=== PATIENT | male | born 1980 | race Caucasian/White ===

== ENCOUNTER 2017-01-31 07:54 | Inpatient (IN) | payer SELFPAY ==
[~2017-01-31] VITALS: Ht 177.8 cm; Wt 72.0 kg
[2017-01-31 07:55] VITALS: O2SAT 96
[2017-01-31] MEDS ORDERED: ONDANSETRON HCL 4 MG/2 ML VIAL ONE (07:59)
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
[2017-01-31 08:13] LABS: I-STAT POTASSIUM 3.4 MMOL/L (3.5-4.9); I-STAT SODIUM 141 MMOL/L (138-146)
[2017-01-31 08:14] LABS: AUTOMATED NEUTROPHIL # 7.6 TH/MM3 (1.8-7.7); BASOPHIL # 0.1 TH/MM3 (0-0.2); BASOPHIL % 0.6 % (0.0-2.0); EOSINOPHIL # 0.1 TH/MM3 (0-0.4); EOSINOPHIL % 0.6 % (0.0-4.0); HEMO FLAGS DIFF FINAL; LYMPH % 26.4 % (9.0-44.0); MEAN CORPUSCULAR HEMOGLOBIN 31.3 PG (27.0-34.0); MEAN CORPUSCULAR HGB CONC 33.7 % (32.0-36.0); MONO % 5.4 % (0.0-8.0); PLATELET COUNT 298 TH/MM3 (150-450); RED BLOOD COUNT 4.41 MIL/MM3 (4.50-5.90); RED CELL DISTRIBUTION WIDTH 13.1 % (11.6-17.2); WHITE BLOOD COUNT 11.4 TH/MM3 (4.0-11.0)
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
[2017-01-31] MEDS ORDERED: ONDANSETRON HCL 4 MG/2 ML VIAL IV ONE (08:30)
[2017-01-31 08:32] LABS: APTT (PATIENT) 24.7 SEC (24.3-30.1); PROTHROMBIN TIME - PATIENT 11.3 SEC (9.8-11.6)
[2017-01-31] MEDS ORDERED: ACETAMINOPHEN 1000 MG/100 ML VIAL IV PRN (08:45)
[2017-01-31] MEDS ORDERED: MISCELLANEOUS NURSING INFORMATION XX SCH (08:45)
[2017-01-31] MEDS ORDERED: CHLORHEXIDINE GLUCONATE 2 % 1 PACK (2 CLOTHS) TOP PRN (08:45)
[2017-01-31] MEDS ORDERED: ONDANSETRON HCL 4 MG/2 ML VIAL IV PRN (08:45)
[2017-01-31] MEDS: DOCUSATE SODIUM 100 MG/10 ML UDC PO SCH ×2 (09:00→19:40)
[2017-01-31] MEDS: LACTATED RINGER'S 1000 ML INJ 1,000 ML IV SCH ×2 (09:40→16:31)
[2017-01-31] MEDS: ACETAMINOPHEN/HYDROcodone 325 MG/5 MG TAB PO PRN ×4 (09:41→23:17)
[2017-01-31] MEDS ORDERED: MECLIZINE HCL 25 MG TAB PO ONE (09:45)
[2017-01-31 10:57] VITALS: BP 99/59; PULSE 78; RESP 16; TEMP 96.8; O2SAT 100
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
[2017-01-31 16:31] VITALS: BP 106/61; PULSE 66; RESP 16; TEMP 97.5; O2SAT 98
[2017-01-31] MEDS ORDERED: LACTULOSE SYRUP 20 GM/30 ML CUP PO PRN (20:00)
[2017-01-31] MEDS ORDERED: SUMAtriptan SUCCINATE 25 MG TAB PO PRN (20:00)
[2017-01-31 20:11] LABS: AMPHETAMINE, URINE NEG (NEG); BARBITURATES, URINE NEG (NEG); COCAINE, URINE NEG (NEG)
[2017-01-31 20:50] VITALS: BP 104/68; PULSE 57; RESP 18; TEMP 97.8; O2SAT 98
[2017-01-31] MEDS: DOCUSATE SODIUM 50 MG/SENNA 8.6 MG TAB PO SCH (21:08)
[2017-01-31] MEDS: PANTOPRAZOLE SODIUM 40 MG VIAL IV PUSH SCH (21:09)
[2017-02-01] VITALS (7 sets, daily range): BP systolic 100–125; BP diastolic 62–82; PULSE 51–77; RESP 16–19; TEMP 96.9–97.7; O2SAT 97–100
[2017-02-01] MEDS: LACTATED RINGER'S 1000 ML INJ 1,000 ML IV SCH ×2 (03:36→14:31)
[2017-02-01] MEDS ORDERED: CHLORHEXIDINE GLUCONATE 2 % 1 PACK (2 CLOTHS) TOP SCH (04:00)
[2017-02-01] MEDS: ACETAMINOPHEN/HYDROcodone 325 MG/5 MG TAB PO PRN ×4 (05:22→17:57)
[2017-02-01 08:33] LABS: AUTOMATED NEUTROPHIL # 7.1 TH/MM3 (1.8-7.7); BASOPHIL # 0.1 TH/MM3 (0-0.2); BASOPHIL % 0.7 % (0.0-2.0); EOSINOPHIL # 0.1 TH/MM3 (0-0.4); EOSINOPHIL % 0.7 % (0.0-4.0); HEMATOCRIT 40.7 % (39.0-51.0); HEMO FLAGS DIFF FINAL; LYMPH % 17.4 % (9.0-44.0); LYMPHOCYTE # 1.7 TH/MM3 (1.0-4.8); MEAN CELL VOLUME 90.8 FL (80.0-100.0); MEAN CORPUSCULAR HEMOGLOBIN 30.2 PG (27.0-34.0); MEAN CORPUSCULAR HGB CONC 33.2 % (32.0-36.0); MONO % 6.4 % (0.0-8.0); NEUT % 74.8 % (16.0-70.0); PLATELET COUNT 247 TH/MM3 (150-450); RED BLOOD COUNT 4.48 MIL/MM3 (4.50-5.90); RED CELL DISTRIBUTION WIDTH 12.8 % (11.6-17.2); WHITE BLOOD COUNT 9.5 TH/MM3 (4.0-11.0)
[2017-02-01] MEDS: DOCUSATE SODIUM 50 MG/SENNA 8.6 MG TAB PO SCH ×2 (09:00→21:00)
[2017-02-01 09:20] LABS: BICARBONATE 25.6 MEQ/L (21.0-32.0); POTASSIUM 3.6 MEQ/L (3.5-5.1)
[2017-02-01] MEDS ORDERED: BACITRACIN TOP OINT 15 GM TUBE ONE (09:36)
--- NOTE | 2017-02-01 15:19 | HHI.PR ---
Subjective Subjective Notes Denies N/V Complains of [place] Objective Vitals/I&O Vital Signs Date Time Temp Pulse Resp B/P Pulse Ox O2 Delivery O2 Flow Rate FiO2 02/01/17 10:50 97.6 73 16 123/82 99 01/31/17 07:55 Nasal Cannula 2 Labs Laboratory Tests Test 01/31/17 01/31/17 02/01/17 19:45 19:55 08:08 Urine Opiates Screen POS Urine Barbiturates Screen NEG Urine Amphetamines Screen NEG Urine Benzodiazepines Screen NEG Urine Cocaine Screen NEG Urine Cannabinoids Screen POS Nasal Screen MRSA (PCR) MRSA NOT DETECTED White Blood Count 9.5 Red Blood Count 4.48 Hemoglobin 13.5 Hematocrit 40.7 Mean Corpuscular Volume 90.8 Mean Corpuscular Hemoglobin 30.2 Mean Corpuscular Hemoglobin 33.2 Concent Red Cell Distribution Width 12.8 Platelet Count 247 Mean Platelet Volume 9.0 Neutrophils (%) (Auto) 74.8 Lymphocytes (%) (Auto) 17.4 Monocytes (%) (Auto) 6.4 Eosinophils (%) (Auto) 0.7 Basophils (%) (Auto) 0.7 Neutrophils # (Auto) 7.1 Lymphocytes # (Auto) 1.7 Monocytes # (Auto) 0.6 Eosinophils # (Auto) 0.1 Basophils # (Auto) 0.1 CBC Comment DIFF FINAL Differential Comment Sodium Level 140 Potassium Level 3.6 Chloride Level 105 Carbon Dioxide Level 25.6 Anion Gap 9 Blood Urea Nitrogen 8 Creatinine 0.84 Estimat Glomerular Filtration 79 Rate Random Glucose 77 Calcium Level 8.9 Radiology Last Imp[address] Head CT 01/31/17 08 Signed Impressions: Service Date/Time: Tuesday, January 31, 2017 08:06 - CONCLUSION: Mild right frontal scalp soft tissue swelling. No fracture or acute intracranial abnormality is identified. Kosta Murrieta MD Cervical Spine CT 01/31/17 08 Signed Impressions: Service Date/Time: Tuesday, January 31, 2017 08:06 - CONCLUSION: No acute cervical spine abnormality is identified. Kosta Murrieta MD Narrative Exam GENERAL: Adult well-nourished, well developed male lying in bed. SKIN: Warm and dry. HEAD: Normocephalic. Dry dressing to head C/D/I. ENT: No nasal bleeding or discharge. Mucous membranes pink and moist. NECK: Trachea midline. No JVD. CARDIOVASCULAR: Regular rate and rhythm. RESPIRATORY: No accessory muscle use. Lungs clear to auscultation. Breath sounds equal bilaterally. GASTROINTESTINAL: Abdomen soft, non-tender, nondistended. + BS. MUSCULOSKELETAL: Extremities without cyanosis, or edema. No obvious deformities. NEUROLOGICAL: Awake and alert. Normal speech. A/P Assessment and Plan INJURIES: Scalp lac Concussion Diet: Regular Pulm: IS Pain: [place], IV Ofirmev, Imitrex Activity: OOB. PT ordered. Per RN patient ambulating unassisted in room. GI: IV Protonix Bowel: Keli-colace. Lactulose PRN. LBM 0 DVT: SCDs Scalp lac Sutured in the ED Wound care: Cleanse daily with soap and water. Leave open to air Concussion Supportive care Avoid second head injury Postconcussive education Neuropsychology consult Plan of care discussed with patient and RN at bedside. Case management consulted to assist discharge planning. Plan to DC tomorrow. Discharge Planning seen and examined with [employer] MECH[employer]IC -agree with assessment and plan GCS 15 -neuro intact,not ambulating,nausea-will dc in am diet oob Avril Roldan Feb 01, 2017 15:19 Shawanda Sanders MD Feb 02, 2017 16:29
[2017-02-01] MEDS: PANTOPRAZOLE SODIUM 40 MG VIAL IV PUSH SCH (21:00)
[2017-02-02] MEDS: LACTATED RINGER'S 1000 ML INJ 1,000 ML IV SCH ×2 (00:31→10:31)
[2017-02-02] MEDS: ACETAMINOPHEN/HYDROcodone 325 MG/5 MG TAB PO PRN ×3 (03:15→13:34)
[2017-02-02 08:00] VITALS: BP 118/67; PULSE 59; RESP 19; TEMP 97.2; O2SAT 100
[2017-02-02] MEDS: DOCUSATE SODIUM 50 MG/SENNA 8.6 MG TAB PO SCH (08:38)
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
[2017-02-02 12:00] VITALS: BP 102/60; PULSE 53; RESP 19; TEMP 96.7; O2SAT 100
[2017-02-02] MEDS ORDERED: HYDR-3516 PO (13:05)
== END 2017-02-02 14:13 | disposition home or self-care (01) | DRG 90 ==
LOC: NEPI 07:54 → NEDA 08:55 → EDBD 08:55 → N06B 10:51
PROVIDERS: ADMIT Surgery Trauma Surgery; ATTEND Surgery Trauma Surgery
PROC: 0HQ0XZZ Repair Scalp Skin, External Approach (ICD-10-PCS; principal; 2017-01-31)
DX: S06.0X9A Concussion with loss of consciousness of unspecified duration, initial encounter (principal); R11.10 Vomiting, unspecified; Y00.XXXA Assault by blunt object, initial encounter; Y93.9 Activity, unspecified; S01.01XA Laceration without foreign body of scalp, initial encounter; Z59.0 Homelessness
CPT/HCPCS: 70450; 72125; 80048; 80307; 82435; 82565; 82947; 84132; 84295; 84520; 85025; 85610; 85730; 86850; 86900; 86901; 87641; C9113; J2405; J7120